=== PATIENT | female | born 1955 | race Caucasian/White ===

== ENCOUNTER 2017-02-21 08:20 | Emergency (ER) | payer OTHER ==
[2017-02-21 09:02] LABS: BASOPHIL# 0.1 X 10^3uL (0.0-0.1); BASOPHILS 1.8 % (0.0-2.0); EOSINOPHILS 2.1 % (0.0-6.0); EOSINOPHILS# 0.1 X 10^3uL (0.0-0.4); HEMATOCRIT 40.5 % (36.0-48.0); HEMOGLOBIN 13.6 g/dL (12.0-16.0); LYMPHOCYTES 26.3 % (20.0-40.0); LYMPHOCYTES# 1.5 X 10^3uL (0.8-3.8); MEAN CELL VOLUME 83.3 fL (80.0-100.0); MEAN CORPUS. HGB CONCENTRATION 33.5 g/dL (32.0-36.0); MEAN CORPUSCULAR HEMOGLOBIN 27.9 pg (29.0-35.0); MEAN PLATELET VOLUME 7.7 fL (7.4-10.4); MONOCYTES 10.3 % (2.0-10.0); MONOCYTES# 0.6 X 10^3uL (0.2-1.0); NEUTROPHILS 59.5 % (54.0-75.0); NEUTROPHILS# 3.5 X 10^3uL (2.6-6.7); RED BLOOD COUNT 4.86 X 10^6uL (4.20-6.10); RED CELL DISTRIBUTION WIDTH 12.7 % (11.5-14.5); WHITE BLOOD COUNT 5.8 X 10^3uL (3.9-10.7)
[2017-02-21 09:30] LABS: INR 1.3
[2017-02-21] MEDS ORDERED: ENOXAPARIN SODIUM 100 MG/ML SYR SUBCUT ONE (10:00)
--- NOTE | 2017-02-21 10:07 | ER NURSING DOCUMENTATION ---
Nurse's Notes [facility] Name:Anuradha Chung Age:61 yrs Sex:Female :1955 Arrival Date:02/21/2017 Time:08:20 Bed1 Private MD: Diagnosis:Knee Effusion Presentation: 02/21 08:23 Acuity: ARIANE 4 tg 08:31 Presenting complaint: Patient states: Pain behind right knee. Began February 03, 2017. Hx of tg blood clots. Transition of care: patient was not received from another setting of care. 08:31 Method Of Arrival: Private Vehicle tg 09:54 Acuity: ARIANE 3 tg Triage Assessment: 08:42 General: Appears in no apparent distress, Behavior is cooperative, pleasant. Pain: tg Complains of pain in posterior aspect of right knee. Neuro: Level of Consciousness is awake, alert. Cardiovascular: Capillary refill < 3 seconds. Respiratory: No deficits noted. GI:. Derm: Skin is pink, warm & dry. Musculoskeletal: Range of motion intact in all extremities. right leg calf circumference 35cm, left leg calf circumference 36cm. Historical: - Allergies: hormones; - Home Meds: 1. bistolic 2. Xarelto oral - PMHx: AT3 deficiency; DVT and PE; - PSHx: HYSTERECTOMY; - Tetanus: < 10 years. - Ebola Screening: : Patient negative for fever greater than or equal to 101.5 degrees Fahrenheit, and additional compatible Ebola Virus Disease symptoms. Patient denies exposure to infectious person. Patient denies travel to an Ebola-affected area in the 21 days before illness onset. No symptoms or risks identified at this time. . - Immunization history: Flu Vaccine < 1 year. - Social history: Smoking status: Patient states was never smoker of tobacco. Screenin:47 Infectious Disease Risk Unable to Obtain. Abuse screen: Denies threats or abuse. Denies tg injuries from another. Nutritional screening: No deficits noted. Vital Signs: 08:32 BP 152 / 84; Pulse 79; Resp 16; Temp 97.8(O); Pulse Ox 94% on R/A; Weight 58.97 kg (R); tg Height 5 ft. 5 in. (165.10 cm) (R); Pain 3/10; 08:32 Body Mass Index 21.63 (58.97 kg, 165.10 cm) tg ED Course: 08:22 Patient arrived in ED. jt 08:23 Bear Garner, RN is Primary Nurse. tg 08:23 Triage completed. tg 08:41 Osmani Liu MD is Attending Physician. wy 08:43 Notified ED Physician of patient's arrival and chief complaint. Dr. Liu notified. tg 08:46 Arm band placed on Bed in low position Call Light in Reach Gowned HOB Elevated. tg 08:47 Valuables Remains with patient. tg 09:49 Ailin Israel MD is Referral Physician. sc Administered Medications: 09:54 Drug: Lovenox 1.5 mg/kg; Route: Sub-Q; Site: right lower abdomen; tg 10:06 Follow up: Response: No adverse reaction; No adverse reaction, pt has used lovenox tg previously Outcome: 09:50 Discharge ordered by . wy 09:54 Discharged to home ambulatory, with family. tg 09:54 Condition: unchanged 09:54 Discharge Assessment: Patient awake, alert and oriented x 3. No cognitive and/or functional deficits noted. Patient verbalized understanding of disposition instructions. 09:54 Instructed on discharge instructions, follow up and referral plans. 10:06 Patient left the ED. tg 02/22 14:04 Discharge F/U Call: Unable to reach: left voicemail: lc Signatures: Bear Garner RN RN Janett Alan RN RN Osmani Cazares MD MD wy Ila Larson
--- NOTE | 2017-02-21 10:07 | ER PHYSICIAN DOCUMENTATION ---
Physician Documentation [facility] Name:Anuradha Chung Age:61 yrs Sex:Female :1955 Arrival Date:02/21/2017 Time:08:20 Bed1 Private MD: Osmani Camarillo Disposition: 02/21/17 09:50 Discharged to Home/Self Care. Impression: Knee Effusion. - Condition is Good. - Discharge Instructions: KNEE EFFUSION, Deep Vein Thrombophlebitis - DVT. - Medical Reconciliation form form. - Follow up: Ailin Israel MD; When: Tomorrow; Reason: Continuance of care. - Problem is new. - Symptoms are unchanged. HPI: 02/21 09:44 This 61 yrs old Female presents to ER via Private Vehicle with complaints of sc Leg Pain. 09:44 The patient presents with pain, that is acute. The complaints affect the posterior sc aspect of right knee. Context: The problem was sustained at home, resulted from lifting, moving to [place], the patient can fully bear weight, the patient is able to ambulate. Onset: The symptom(s)/episode began/occurred yesterday. The patient has experienced similar episodes in the past, several times. Historical: - Allergies: hormones; - Home Meds: 1. bistolic 2. Xarelto oral - PMHx: AT3 deficiency; DVT and PE; - PSHx: HYSTERECTOMY; - Tetanus: < 10 years. - Ebola Screening: : Patient negative for fever greater than or equal to 101.5 degrees Fahrenheit, and additional compatible Ebola Virus Disease symptoms. Patient denies exposure to infectious person. Patient denies travel to an Ebola-affected area in the 21 days before illness onset. No symptoms or risks identified at this time. . - Immunization history: Flu Vaccine < 1 year. - Social history: Smoking status: Patient states was never smoker of tobacco. ROS: 09:47 Constitutional: Negative for fever, chills, and weight loss. sc Eyes: Negative for injury, pain, redness, and discharge. Cardiovascular: Negative for chest pain, palpitations, and edema. Respiratory: Negative for shortness of breath, cough, wheezing, and pleuritic chest pain. Back: Negative for injury and pain. Skin: Negative for injury, rash, and discoloration. 09:47 Neuro: Negative for headache, weakness, numbness, tingling, and seizure. sc 09:47 MS/extremity: Positive for pain, Negative for swelling. Exam: Constitutional: This is a well developed, well nourished patient who is awake, alert, and in no acute distress. Head/Face: Normocephalic, atraumatic. Neck: Trachea midline, no thyromegaly or masses palpated, and no cervical lymphadenopathy. Supple, full range of motion without nuchal rigidity, or vertebral point tenderness. No meningismus. Chest/axilla: Normal chest wall appearance and motion. Nontender with no deformity. No lesions are appreciated. Cardiovascular: Regular rate and rhythm with a normal S1 and S2. No gallops, murmurs, or rubs. Normal PMI, no JVD. No pulse deficits. Respiratory: Lungs have equal breath sounds bilaterally, clear to auscultation and percussion. No rales, rhonchi or wheezes noted. No increased work of breathing, no retractions or nasal flaring. Back: No spinal tenderness. No costovertebral tenderness. Full range of motion. Skin: Warm, dry with normal turgor. Normal color with no rashes, no lesions, and no evidence of cellulitis. 09:47 Neuro: Awake and alert, GCS 15, oriented to person, place, time, and situation. sc Cranial nerves II-XII grossly intact. Motor strength 5/5 in all extremities. Sensory grossly intact. Cerebellar exam normal. Normal gait. 09:47 Musculoskeletal/extremity: Extremities: grossly normal except: pain, ROM: limited active range of motion due to pain, limited passive range of motion due to pain, Circulation is intact in all extremities. Sensation intact. DVT Exam: no swelling, negative Homans' sign noted on exam, no appreciated bluish discoloration, no erythema, no increased warmth, pain, tenderness. Vital Signs: 08:32 BP 152 / 84; Pulse 79; Resp 16; Temp 97.8(O); Pulse Ox 94% on R/A; Weight 58.97 kg (R); tg Height 5 ft. 5 in. (165.10 cm) (R); Pain 3/10; 08:32 Body Mass Index 21.63 (58.97 kg, 165.10 cm) tg MDM: 09:03 Patient medically screened. sc 09:48 Differential diagnosis: small effusion on right knee, internal knee injury vs dvt. Data wy reviewed: vital signs, nurses notes, lab test result(s), and as a result, I will discharge patient. Counseling: I had a detailed discussion with the patient and/or guardian regarding: the historical points, exam findings, and any diagnostic results supporting the discharge/admit diagnosis, lab results, the need for outpatient follow up, for definitive care, outpt us ordered for tomorrow, f/u with [facility] for results. 02/21 09:03 Order name: CBC AUTO DIF, MDIF/RMOR IF IND; Complete Time: 09:35 EDMS 02/21 09:34 Interpretation: Normal: Normal. wy 02/21 09:28 Order name: DDIMER; Complete Time: 09:35 EDMS 02/21 09:34 Interpretation: Abnormal: DDIMER 371. wy 02/21 09:31 Order name: PROTIME/INR; Complete Time: 09:35 EDMS 02/21 09:35 Interpretation: Normal Except: PROTIME 18.0. wy 02/21 09:31 Order name: PARTIAL THROMBOPLASTIN TIME; Complete Time: 09:35 EDMS 02/21 09:35 Interpretation: Normal. wy Dispensed Medications: 09:54 Drug: Lovenox 1.5 mg/kg; Route: Sub-Q; Site: right lower abdomen; tg 10:06 Follow up: Response: No adverse reaction; No adverse reaction, pt has used lovenox tg previously Signatures: Bear Garner RN RN tg Osmani Liu MD MD wy
== END 2017-02-21 10:07 | disposition home or self-care (01) ==
LOC: ER 08:20
DX: M25.461 Effusion, right knee (principal); R79.1 Abnormal coagulation profile; D68.59 Other primary thrombophilia; Z86.718 Personal history of other venous thrombosis and embolism; Z86.711 Personal history of pulmonary embolism; Z79.01 Long term (current) use of anticoagulants; Z79.899 Other long term (current) drug therapy
CPT/HCPCS: 36415; 85025; 85379; 85610; 85730; 96372; 99283; J1650